=== PATIENT | female | born 1965 ===

== ENCOUNTER 2018-11-14 01:32 | Emergency (ER) | payer SELFPAY ==
[2018-11-14 02:33] VITALS: RESP 16
[2018-11-14] MEDS ORDERED: levoFLOXacin 500 MG TAB PO STA (03:55)
[2018-11-14 04:05] LABS: SQUAMOUS EPITHIAL 1 /hpf (0-5); URINE BACTERIA MOD (<OCC); URINE BILIRUBIN NEGATIVE (NEGATIVE); URINE BLOOD MODERATE (NEGATIVE); URINE CLARITY CLOUDY (Clear); URINE COLOR YELLOW (YELLOW); URINE GLUCOSE (UA) NEG (NEGATIVE); URINE HYALINE CAST 0-2 /hpf (0-2); URINE LEUKOCYTE ESTERASE MOD Leu/uL (Negative); URINE PROTEIN 100 mg/dL (NEGATIVE); URINE UROBILINOGEN 0.2-1.0 mg/dL (0.2-1.0)
--- NOTE | 2018-11-14 04:07 | ED PDOC ---
HPI: Female Pain Time Seen by Provider: 11/14/18 03:32 Chief Complaint (Nursing): Back Pain Chief Complaint (Provider): dysuria/back pain x 2 days History Per: Patient History/Exam Limitations: no limitations Onset/Duration Of Symptoms: Days (2) Current Symptoms Are (Timing): Still Present Severity: Mild Quality Of Discomfort: Burning Associated Symptoms: Fever, Chills Additional Complaint(s): PAtient is a 53 year old female with no PMHX c/o dysuria and back pain x 2 days. She also reports subjective fever and chills. No N/V/D. Past Medical History Reviewed: Historical Data, Nursing Documentation, Vital Signs Vital Signs: Last Vital Signs Temp 99.1 F 11/14/18 02:30 Pulse 87 11/14/18 02:30 Resp 16 11/14/18 02:30 BP 122/80 11/14/18 02:30 Pulse Ox 97 11/14/18 02:30 - Medical History PMH: No Chronic Diseases - Surgical History Surgical History: Other surgeries: Left rotator cuff surgery - Family History Family History: States: No Known Family Hx - Living Arrangements Living Arrangements: With Family - Social History Current smoker - smoking cessation education provided: No Alcohol: None Drugs: Denies - Home Medications Home Medications: Ambulatory Orders Medication Instructions Recorded Naproxen 500 mg PO BID #20 ect 05/21/17 Phenazopyridine HCl [Pyridium] 100 mg PO TID #6 tab 11/14/18 levoFLOXacin [Levaquin] 750 mg PO DAILY #7 tab 11/14/18 - Allergies Allergies/Adverse Reactions: Allergies Allergy/AdvReac Type Severity Reaction Status Date / Time No Known Allergies Allergy Verified 05/21/17 06:14 Review of Systems ROS Statement: Except As Marked, All Systems Reviewed And Found Negative Genitourinary Female: Positive for: Dysuria, Frequency, Pelvic Pain Musculoskeletal: Positive for: Back Pain Physical Exam - Reviewed Nursing Documentation Reviewed: Yes Vital Signs Reviewed: Yes - Physical Exam Appears: Positive for: Non-toxic, Uncomfortable Head Exam: Positive for: ATRAUMATIC, NORMOCEPHALIC Skin: Positive for: Normal Color, Warm, Dry Eye Exam: Positive for: Normal appearance, EOMI, PERRL ENT: Positive for: Normal ENT Inspection Neck: Positive for: Normal, Painless ROM, Supple Cardiovascular/Chest: Positive for: Regular Rate, Rhythm. Negative for: Murmur Respiratory: Positive for: Normal Breath Sounds. Negative for: Rales, Rhonchi, Wheezing Gastrointestinal/Abdominal: Positive for: Bowel Sounds, Soft, Tenderness ((+)suprapubic tenderness) Back: Positive for: Normal Inspection, R CVA Tenderness Extremity: Positive for: Normal ROM. Negative for: Tenderness, Pedal Edema Neurological/Psych: Positive for: Awake, Alert. Negative for: Motor/Sensory Deficits - ECG O2 Sat by Pulse Oximetry: 97 Medical Decision Making Medical Decision Makin53 year old female with UTI UA, U dip U dip indicative for UTI PO Levaquin/Pyridium DX UTI Disposition - Clinical Impression Clinical Impression: UTI (urinary tract infection) - Disposition Disposition Time: 04:10 Condition: STABLE Prescriptions: levoFLOXacin [Levaquin] 750 mg PO DAILY #7 tab Phenazopyridine HCl [Pyridium] 100 mg PO TID #6 tab Instructions: Urinary Tract Infection, Adult (DC) Forms: [facility] (Nepali) Print Language: BRITISH
[2018-11-14 04:22] VITALS: BP 121/78; PULSE 82; TEMP 98.9; O2SAT 98
== END 2018-11-14 04:22 | disposition home or self-care (01) ==
LOC: H.ER 01:32
DX: N39.0 Urinary tract infection, site not specified (principal)